=== PATIENT | male | born 1975 | race Caucasian/White ===

== ENCOUNTER → 2017-07-29 | Outpatient (CLI) | payer OTHER ==
[~2017-07-29] MED LIST: DIPH25CA79 PO; OMEP20TA7 PO; PSEU1TAB PO
[2017-07-29 08:42] LABS: BILIRUBIN,URINE NEGATIVE (NEGATIVE); CLARITY,URINE CLEAR; COLOR,URINE YELLOW; GLUCOSE, URINE (UA) NEGATIVE (NEGATIVE); KETONES,URINE 3+ (NEGATIVE); LEUKOCYTE ESTERASE ,URINE NEGATIVE (NEGATIVE); NITRITE,URINE NEGATIVE (NEGATIVE); PH,URINE 6.5 (5-9); PROTEIN,URINE NEGATIVE (NEGATIVE); UROBILINOGEN,URINE NORMAL (NORMAL)
[2017-07-29 08:43] LABS: BASOPHILS % (AUTO) 0 % (0-10); EOSINOPHILS % (AUTO) 0 % (0-10); HEMATOCRIT 44 % (40-54); HEMOGLOBIN 15.2 G/DL (13.3-17.7); LYMPHOCYTES # (AUTO) 1.2 X 10^3 (1.0-4.0); LYMPHOCYTES % (AUTO) 21 % (12-44); MEAN CORPUSCULAR HEMOGLOBIN 30 PG (25-34); MEAN CORPUSCULAR HGB CONC 35 G/DL (32-36); MEAN CORPUSCULAR VOLUME 86 FL (80-99); MEAN PLATELET VOLUME 9.5 FL (7.4-10.4); MONOCYTES # (AUTO) 0.4 X 10^3 (0.0-1.0); MONOCYTES % (AUTO) 7 % (0-12); NEUTROPHILS % (AUTO) 71 % (42-75); PLATELET COUNT 246 10^3/uL (130-400); RED BLOOD COUNT 5.06 10^6/uL (4.35-5.85); RED CELL DISTRIBUTION WIDTH 12.4 % (10.0-14.5); WHITE BLOOD COUNT 5.6 10^3/uL (4.3-11.0)
[2017-07-29 08:59] LABS: BACTERIA,URINE NEGATIVE /HPF; RBC,URINE RARE /HPF
[2017-07-29 09:01] LABS: ALANINE AMINOTRANSFERASE 17 U/L (0-55); ALBUMIN 4.7 GM/DL (3.2-4.5); ALKALINE PHOSPHATASE 93 U/L (40-136); AMYLASE 64 U/L (25-125); BILIRUBIN,TOTAL 1.1 MG/DL (0.1-1.0); BUN/CREATININE RATIO 15; CALCIUM 9.8 MG/DL (8.5-10.1); CARBON DIOXIDE 23 MMOL/L (21-32); CHLORIDE 106 MMOL/L (98-107); CREATININE SERUM 0.85 MG/DL (0.60-1.30); GFR ESTIMATED > 60; GLUCOSE 112 MG/DL (70-105); LIPASE 13 U/L (8-78); SODIUM 138 MMOL/L (135-145); TOTAL PROTEIN 7.3 GM/DL (6.4-8.2)
[2017-07-29 09:03] LABS: ERYTHROCYTE SEDIMENTATION RATE 2 MM/HR (0-15)
--- NOTE | 2017-07-29 09:24 | Diagnostic Imaging Report ---
CLINICAL INDICATION: Patient with abdominal pain. COMPARISON: None. FINDINGS: LIVER: The visualized portions of the liver is normal in shape and echogenicity without focal lesions. The liver measures roughly 15 cm in craniocaudal dimension. The visualized portal veins demonstrates hepatopetal flow. GALLBLADDER: The gallbladder is normal in size, shape and wall thickness without stones, sludge, or masses. BILE DUCTS: There is no evidence of intra- or extra-hepatic biliary dilatation. The common duct measured a maximum of 3.7 mm in diameter. PANCREAS: Portions of the pancreatic tail are obscured by overlying bowel gas. Otherwise, the remaining visualized portions of the pancreas has normal size, shape, and echogenicity without focal lesions. SPLEEN: The spleen has normal echogenicity and configuration. The spleen measures 9.3 cm. ABDOMINAL VASCULATURE: Visualized portions of the abdominal aorta and proximal bilateral common iliac arteries demonstrate smooth contours and are normal in caliber. There is no aneurysmal dilation seen. Visualized portion of the IVC is unremarkable. KIDNEYS: Both kidneys are normal in size, shape, echogenicity and cortical thickness without hydronephrosis, stones, or focal lesions with right and left kidneys measuring 9.6 cm and 11.0 cm in their craniocaudal dimensions, respectively. There is no abdominal ascites. IMPRESSION: 1: Incomplete visualization of the pancreas tail which is obscured by bowel gas. If there is clinical concern for pancreatic abnormality, serology tests may better evaluate. 2: Otherwise, unremarkable abdominal ultrasound with no evidence of acute process. Dictated by: Dictated on workstation # [id number]
== END ==
LOC: RAD 07:51
PROVIDERS: ATTEND Internal Medicine
DX: R10.9 Unspecified abdominal pain (principal)
CPT/HCPCS: 36415; 76700; 80053; 81000; 82150; 83690; 85025; 85652; 86141

== ENCOUNTER 2017-08-02 10:28 | Day surgery (SDC) | payer OTHER ==
[~2017-08-02] VITALS: Ht 175.3 cm; Wt 73.9 kg
--- OUTSIDE RECORDS SUMMARY | 2017-08-02 10:32 | XMS REPORT | Clinical Summary ---
Author Author [facility] Organization [facility] Address Unknown Phone Unavailable Care Team Providers Care Sow Farm Manager Name Role Phone Shawn Hogan PCP Eleuterio Romero MD Unavailable Source Comments Some departments are not documenting in the electronic medical record. If you do not see the information that you expected, contact Release of Information in the Health Information Management department at [phone] for further assistance in locating additional records.[facility] Allergies No Known Allergies Current Medications Prescription Sig. Disp. Refills Start End Date Status Date morphine SR (MS CONTIN) Take 2 Tabs by mouth 60 0 /20/20 Active 15 mg tablet Twice Daily. 08 senna/docusate Take 1 Tab by mouth Every 60 0 07/20/20 Active (SENOKOT-S) 8.6/50 mg 12 Hours as needed for 08 tablet constipation oxycodone/acetaminophen Take 1-2 Tabs by mouth 120 0 /20/20 Active (PERCOCET) 5/325 mg Every 4 Hours as needed 08 tablet for Pain. promethazine (PHENERGAN) Take 1 Tab by mouth Every 50 0 /20/20 Active 25 mg tablet 6 Hours as needed for 08 Nausea. Active Problems Problem Noted Date Fracture calcaneus-closed 10/14/2007 Social History Tobacco Use Types Packs/Day Years Used Date Never Smoker Alcohol Use Drinks/Week oz/Week Comments Yes 12 Cans of 144.0 beer Sex Assigned at Date Recorded Not on file Last Filed Vital Signs Vital Sign Reading Time Taken Blood Pressure 125/75 10/15/2007 7:00 AM CDT Pulse 72 10/15/2007 7:00 AM CDT Temperature 36.7 C (98 F) 10/15/2007 7:00 AM CDT Respiratory Rate - - Oxygen Saturation 95% 10/15/2007 7:00 AM CDT Inhaled Oxygen - - Concentration Weight - - Height - - Body Mass Index - - Plan of Treatment Health Maintenance Due Date Last Done Comments PHYSICAL (COMPREHENSIVE) 1981 EXAM PERTUSSIS VACCINE 1985 HIV SCREENING 1989 TETANUS VACCINE 1991 INFLUENZA VACCINE 12/26/2017 Results Not on filefrom Last 3 Months
--- OUTSIDE RECORDS SUMMARY | 2017-08-02 10:33 | XMS REPORT | Clinical Summary ---
Author Author User, [employer] Organization Daksha Snyder DO, FACP Address Unknown Phone Allergies, Adverse Reactions, Alerts Allergy Name Reaction Description Start Date Severity Status Provider No Known Allergies Daksha Snyder Conditions or Problems Problem Name Problem Code Onset Date Status Entry Date Provider Comment Standard Description Annotate SACROILIITIS, NOT ELSEWHERE CLASSIFIED 720.2 Active Daksha Snyder Sacroiliitis, not elsewhere classified OTHER PSORIASIS 696.1 Active Daksha Snyder Other psoriasis BACK PAIN 724.5 Active Daksha Snyder Backache, unspecified MUSCLE PAIN 729.1 Active Daksha Snyder Myalgia and myositis, unspecified Medication List Medication Instructions Start Date Stop Date Generic Name NDC Status Provider Patient Instruction BETAMETHASONE DIPROPIONATE 0.05 % OINT apply to affected areas prn BETAMETHASONE DIPROPIONATE 23113692938 Active Daksha Snyder Vital Signs Date Name Value Unit Range Description blood pressure, diastolic - 8462-4 85 mm[Hg] BP carlos blood pressure, systolic - 8480-6 120 mm[Hg] BP sys height E&M - 8302-2 69 [in_us] Bdy height pulse rate E&M - 8867-4 82 /min Heart rate respiratory rate E&M - 9279-1 14 /min Resp rate temperature E&M 98.6 [degF] Body temperature weight E&M - 3141-9 170 [lb_av] Weight Measured Diagnostic Results Date Name Value Unit Range Description Clinical Lists Update: CBC,CMP,ESR,TSH,FREE T4,HGA1C,UA - Chemistry Estimated Glomerular Filtration Rate (calc) >60 mL/min/1.73m2 alkaline phosphatase, serum 80 U/L sodium, serum 138 mmol/L bilirubin, serum, total 0.5 mg/dL alanine aminotransferase (SGPT), serum 24 U/L aspartate aminotransferase (SGOT), serum 17 U/L protein, total, serum 7.0 g/dL potassium, serum 3.8 mmol/L thyroid stimulating hormone, serum 2.68 u[iU]/mL hemoglobin A1C, blood, as % of total hemoglobin 5.8 % thyroxine, serum, free 0.88 ng/dL albumin, serum 4.4 g/dL creatinine, serum 0.91 mg/dL carbon dioxide, venous blood 23 mmol/L chloride, serum 106 mmol/L calcium, serum 9.3 mg/dL urea nitrogen, blood 16 mg/dL glucose, plasma fasting 98 mg/dL Clinical Lists Update: CBC,CMP,ESR,TSH,FREE T4,HGA1C,UA - Hematology leukocyte count, blood 6.7 10*3/mm3 erythrocyte sedimentation rate 6 mm/h hematocrit, blood 42 % hemoglobin, blood 14.7 g/dL platelet count 215 10*3/mm3 erythrocyte (RBC) count 4.89 10*6/mm3 mean corpuscular volume, RBC 86 fL red blood cell distribution width 12.4 % Clinical Lists Update: CBC,CMP,ESR,TSH,FREE T4,HGA1C,UA - Urinalysis glucose, urine, semiquantitative neg blood in urine (hemoglobin) by dipstick neg mucus on urinalysis neg epithelial cells, urine rare /[LPF] hyaline casts, urine none /[LPF] bacteria, urine microscopy neg RBC urine by microscopy none WBC urine on microscopy none {Cells}/[HPF] appearance, urine Clear Yellow bilirubin, urine neg ketones, urine, by test strip neg nitrite, urine, semiquantitative neg pH, urine, semiquantitative 6 protein, urine, semiquantitative (dipstick) neg specific gravity, urine 1.010 urobilinogen, urine, semiquantitative (dipstick) normal Clinical Lists Update: FERRITIN - Chemistry ferritin, serum 97 ng/mL Encounters Code Encounter Date Provider Facility CPT-90596 Ofc Vst, New Level III 17:08:21 CDT Daksha [facility]
--- OUTSIDE RECORDS SUMMARY | 2017-08-02 10:33 | XMS REPORT | Clinical Summary ---
Author Author User, [employer] Organization Daksha Snyder DO, FACP Address Unknown [...] Active Daksha Snyder Myalgia and myositis, unspecified HEALTH SCREENING V70.0 Active Daksha Snyder Routine general medical examination at a health care facility Medication List Medication Instructions Start Date Stop Date Generic Name NDC Status Provider Patient Instruction BETAMETHASONE DIPROPIONATE 0.05 % OINT apply to affected areas prn BETAMETHASONE DIPROPIONATE [id number] Active Daksha Snyder Vital Signs Date Name Value Unit Range Description blood pressure, diastolic - 8462-4 83 mm[Hg] BP carlos blood pressure, systolic - 8480-6 132 mm[Hg] BP sys pulse rate E&M - 8867-4 68 /min Heart rate respiratory rate E&M - 9279-1 14 /min Resp rate weight E&M - 3141-9 170 [lb_av] Weight Measured blood pressure, diastolic - 8462-4 85 mm[Hg] [...] ng/mL Encounters Code Encounter Date Provider Facility CPT-94339 Ofc Vst, New Level III 17:08:21 CDT Dak[facility] Procedures Code Procedure Name Date Entry Date Standard Description CPT-47359 Preventive, Est, (40-64) 16:37:57 CDT
--- OUTSIDE RECORDS SUMMARY | 2017-08-02 10:33 | XMS REPORT | Clinical Summary ---
Author Author User, [employer] Organization Daksha Snyder DO, FACP Address Unknown [...] apply to affected areas prn BETAMETHASONE DIPROPIONATE [id number] Active Daksha Snyder Vital Signs Date Name [...] Clinical Lists Update: CBC,CMP,ESR,TSH,FREE T4,HGA1C,UA - Chemistry glucose, plasma fasting 98 mg/dL albumin, serum 4.4 g/dL sodium, serum 138 mmol/L bilirubin, serum, total 0.5 mg/dL alanine aminotransferase (SGPT), serum 24 U/L aspartate aminotransferase (SGOT), serum 17 U/L protein, total, serum 7.0 g/dL potassium, serum 3.8 mmol/L thyroid stimulating hormone, serum 2.68 u[iU]/mL hemoglobin A1C, blood, as % of total hemoglobin 5.8 % thyroxine, serum, free 0.88 ng/dL creatinine, serum 0.91 mg/dL carbon dioxide, venous blood 23 mmol/L chloride, serum 106 mmol/L calcium, serum 9.3 mg/dL urea nitrogen, blood 16 mg/dL alkaline phosphatase, serum 80 U/L Estimated Glomerular Filtration Rate (calc) >60 mL/min/1.73m2 Clinical Lists Update: CBC,CMP,ESR,TSH,FREE T4,HGA1C,UA - Hematology mean corpuscular volume, RBC 86 fL red blood cell distribution width 12.4 % leukocyte count, blood 6.7 10*3/mm3 erythrocyte sedimentation rate 6 mm/h hematocrit, blood 42 % hemoglobin, blood 14.7 g/dL platelet count 215 10*3/mm3 erythrocyte (RBC) count 4.89 10*6/mm3 Clinical Lists Update: CBC,CMP,ESR,TSH,FREE T4,HGA1C,UA - Urinalysis blood in urine (hemoglobin) by dipstick neg protein, urine, semiquantitative (dipstick) neg epithelial cells, urine rare /[LPF] hyaline casts, urine none /[LPF] bacteria, urine microscopy neg RBC urine by microscopy none WBC urine on microscopy none {Cells}/[HPF] appearance, urine Clear Yellow urobilinogen, urine, semiquantitative (dipstick) normal specific gravity, urine 1.010 glucose, urine, semiquantitative neg bilirubin, urine neg ketones, urine, by test strip neg nitrite, urine, semiquantitative neg pH, urine, semiquantitative 6 mucus on urinalysis neg Encounters Code Encounter Date Provider Facility CPT-82970 Ofc Vst, New Level III 17:08:21 CDT Daksha [facility]
--- OUTSIDE RECORDS SUMMARY | 2017-08-02 10:33 | XMS REPORT | Continuity of Care Document ---
Author Author [facility] Organization [facility] Address Unknown Phone Unavailable Allergies There is no data. Medications There is no data. Problems Date Dx Coded Attending Type Code Diagnosis Diagnosed By 10/17/2014 RENTERIA DO, CINDA Ot 285.9 10/17/2014 RENTERIA DO, CINDA Ot 696.1 10/17/2014 RENTERIA DO, CINDA Ot 719.40 10/17/2014 RENTERIA DO, CINDA Ot 720.2 10/17/2014 RENTERIA DO, CINDA Ot 782.1 11/25/2014 Ot 825.0 11/25/2014 Ot E849.0 11/25/2014 Ot E888.9 11/25/2014 RENTERIA DO, CINDA Ot 285.9 11/25/2014 RENTERIA DO, CINDA Ot 696.1 11/25/2014 RENTERIA DO, CINDA Ot 719.40 11/25/2014 RENTERIA DO, CINDA Ot 720.2 11/25/2014 RENTERIA DO, CINDA Ot 782.1 11/25/2014 RENTERIA DO, CINDA Ot 285.9 11/25/2014 RENTERIA DO, CINDA Ot 696.1 11/25/2014 RENTERIA DO, CINDA Ot 719.40 11/25/2014 RENTERIA DO, CINDA Ot 720.2 11/25/2014 RENTERIA DO, CINDA Ot 782.1 07/28/2017 RENTERIA DO, CINDA Ot 285.9 ANEMIA NOS 07/28/2017 RENTERIA DO, CINDA Ot 696.1 OTHER PSORIASIS 07/28/2017 RENTERIA DO, CINDA Ot 719.40 JOINT PAIN-UNSPEC 07/28/2017 RENTERIA DO, CINDA Ot 720.2 SACROILIITIS NEC 07/28/2017 RENTERIA DO, CINDA Ot 782.1 NONSPECIF SKIN ERUPT NEC Procedures There is no data. Results Test Result Range Complete blood count (CBC) with automated white blood cell (WBC) differential - 07/29/17 08:27 Blood leukocytes automated count (number/volume) 5.6 10*3/uL 4.3-11.0 Blood erythrocytes automated count (number/volume) 5.06 10*6/uL 4.35-5.85 Venous blood hemoglobin measurement (mass/volume) 15.2 g/dL 13.3-17.7 Blood hematocrit (volume fraction) 44 % 40-54 Automated erythrocyte mean corpuscular volume 86 [foz_us] 80-99 Automated erythrocyte mean corpuscular hemoglobin (mass per erythrocyte) 30 pg 25-34 Automated erythrocyte mean corpuscular hemoglobin concentration measurement ( mass/volume) 35 g/dL 32-36 Automated erythrocyte distribution width ratio 12.4 % 10.0-14.5 Automated blood platelet count (count/volume) 246 10*3/uL 130-400 Automated blood platelet mean volume measurement 9.5 [foz_us] 7.4-10.4 Automated blood neutrophils/100 leukocytes 71 % 42-75 Automated blood lymphocytes/100 leukocytes 21 % 12-44 Blood monocytes/100 leukocytes 7 % 0-12 Automated blood eosinophils/100 leukocytes 0 % 0-10 Automated blood basophils/100 leukocytes 0 % 0-10 Blood neutrophils automated count (number/volume) 4.0 10*3 1.8-7.8 Blood lymphocytes automated count (number/volume) 1.2 10*3 1.0-4.0 Blood monocytes automated count (number/volume) 0.4 10*3 0.0-1.0 Automated eosinophil count 0.0 10*3/uL 0.0-0.3 Automated blood basophil count (count/volume) 0.0 10*3/uL 0.0-0.1 Comprehensive metabolic panel - 07/29/17 08:27 Serum or plasma sodium measurement (moles/volume) 138 mmol/L 135-145 Serum or plasma potassium measurement (moles/volume) 4.0 mmol/L 3.6-5.0 Serum or plasma chloride measurement (moles/volume) 106 mmol/L 98-107 Carbon dioxide 23 mmol/L 21-32 Serum or plasma anion gap determination (moles/volume) 9 mmol/L 5-14 Serum or plasma urea nitrogen measurement (mass/volume) 13 mg/dL 7-18 Serum or plasma creatinine measurement (mass/volume) 0.85 mg/dL 0.60-1.30 Serum or plasma urea nitrogen/creatinine mass ratio 15 NRG Serum or plasma creatinine measurement with calculation of estimated glomerular filtration rate > NRG Serum or plasma glucose measurement (mass/volume) 112 mg/dL 70-105 Serum or plasma calcium measurement (mass/volume) 9.8 mg/dL 8.5-10.1 Serum or plasma total bilirubin measurement (mass/volume) 1.1 mg/dL 0.1-1.0 Serum or plasma alkaline phosphatase measurement (enzymatic activity/volume) 93 U/L 40-136 Serum or plasma aspartate aminotransferase measurement (enzymatic activity/ volume) 15 U/L 5-34 Serum or plasma alanine aminotransferase measurement (enzymatic activity/volume ) 17 U/L 0-55 Serum or plasma protein measurement (mass/volume) 7.3 g/dL 6.4-8.2 Serum or plasma albumin measurement (mass/volume) 4.7 g/dL 3.2-4.5 Serum or plasma amylase measurement (enzymatic activity/volume) - 07/29/17 08: 27 Serum or plasma amylase measurement (enzymatic activity/volume) 64 U /L 25-125 Lipase - 07/29/17 08:27 Lipase 13 U/L 8-78 Erythrocyte sedimentation rate by westergren method - 07/29/17 08:27 Erythrocyte sedimentation rate by westergren method 2 mm 0-15 Serum or plasma C reactive protein measurement (mass/volume) - 07/29/17 08:27 Serum or plasma C reactive protein measurement (mass/volume) 0.03 mg /dL 0.00-0.50 Complete urinalysis with reflex to culture - 07/29/17 08:30 Urine color determination YELLOW NRG Urine clarity determination CLEAR NRG Urine pH measurement by test strip 6.5 5-9 Specific gravity of urine by test strip 1.010 1.016- 1.022 Urine protein assay by test strip, semi-quantitative NEGATIVE NEGATIVE Urine glucose detection by automated test strip NEGATIVE NEGATIVE Erythrocytes detection in urine sediment by light microscopy 1+ NEGATIVE Urine ketones detection by automated test strip 3+ NEGATIVE Urine nitrite detection by test strip NEGATIVE NEGATIVE Urine total bilirubin detection by test strip NEGATIVE NEGATIVE Urine urobilinogen measurement by automated test strip (mass/volume) NORMAL NORMAL Urine leukocyte esterase detection by dipstick NEGATIVE NEGATIVE Automated urine sediment erythrocyte count by microscopy (number/high power field) RARE NRG Automated urine sediment leukocyte count by microscopy (number/high power field ) NONE NRG Bacteria detection in urine sediment by light microscopy NEGATIVE NRG Squamous epithelial cells detection in urine sediment by light microscopy NONE NRG Crystals detection in urine sediment by light microscopy NONE NRG Casts detection in urine sediment by light microscopy NONE NRG Mucus detection in urine sediment by light microscopy NEGATIVE NRG Complete urinalysis with reflex to culture NO NRG Encounters ACCT No. Visit Date/Time Discharge Status Pt. Type Provider Facility Loc./Unit Complaint [id number] 07/29/2017 07:51:00 07/29/2017 23:59:59 [facility] Outpatient CINDA RENTERIA DO [facility] RAD R10.9 ABD PAIN [id number] 09/18/2014 16:37:00 09/18/2014 23:59:59 [facility] Outpatient CINDA RENTERIA DO [facility] RAD SACRUM PAIN,BACK PAIN,SI JOINT PAIN,ANEMIA,PSORIAS [id number] 10/05/2007 10:49:00 Document Registration [email or web address] 09/18/2014 16:40:13 [facility] Document Registration
--- OUTSIDE RECORDS SUMMARY | 2017-08-02 10:33 | XMS REPORT | Clinical Summary ---
Author Author User, [employer] Organization Daksha Snyder DO, FACP Address Unknown [...] medical examination at a health care facility ABDOMINAL PAIN, GENERALIZED 789.07 Active Daksha Snyder Abdominal pain, generalized GERD 530.81 Active Daksha Snyder Esophageal reflux Medication List Medication Instructions Start Date Stop Date Generic Name NDC Status Provider Patient Instruction CARAFATE 1 GM TABS 1 PO 30 minutes before meals and at bedtime SUCRALFATE 58368515575 Active Daksha Snyder BETAMETHASONE DIPROPIONATE 0.05 % OINT apply to affected areas prn BETAMETHASONE DIPROPIONATE 13111542236 Active Daksha Snyder Vital Signs Date Name Value Unit Range Description blood pressure, diastolic - 8462-4 88 mm[Hg] BP carlos blood pressure, systolic - 8480-6 154 mm[Hg] BP sys pulse rate E&M - 8867-4 80 /min Heart rate respiratory rate E&M - 9279-1 14 /min Resp rate temperature E&M 98.6 [degF] Body temperature weight E&M - 3141-9 165 [lb_av] Weight Measured blood pressure, diastolic - 8462-4 83 mm[Hg] [...] Clinical Lists Update: CBC,CMP,ESR,TSH,FREE T4,HGA1C,UA - Chemistry albumin, serum 4.4 g/dL alkaline phosphatase, serum 80 U/L glucose, plasma fasting 98 mg/dL sodium, serum 138 mmol/L bilirubin, serum, total [...] 9.3 mg/dL urea nitrogen, blood 16 mg/dL Estimated Glomerular Filtration Rate (calc) >60 mL/min/1.73m2 [...] ng/mL Encounters Code Encounter Date Provider Facility CPT-51841 Ofc Vst, Est Level IV 19:17:20 CDT Daksha Snyder DO, FACP CPT-33421 Ofc Vst, New Level III 17:08:21 CDT Daksha [facility] Procedures Code Procedure Name Date Entry Date Standard Description CPT-79717 Preventive, Est, (40-64) 16:37:57 CDT
[2017-08-02 10:45] VITALS: BP 117/83
[2017-08-02] MEDS ORDERED: LACTATED RINGERS 1,000 ML IV PRN (10:45)
[2017-08-02] MEDS ORDERED: LACTATED RINGERS 1,000 ML IV ONE (10:52)
[2017-08-02] MEDS ORDERED: MIDAZOLAM 2 MG/2 ML (VERSED) VIAL ONE (11:09)
[2017-08-02] MEDS ORDERED: proPOfol 200 MG/20 ML (DIPRIVAN) VIAL IV ONE ×2 (11:09→11:29)
[2017-08-02] MEDS ORDERED: HURRICAINE EXT TUBE (BENZOCAINE) ONE (11:14)
--- NOTE | 2017-08-02 11:16 | Progress Note-Pre Operative ---
Pre-Operative Progress Note H&P Reviewed The H&P was reviewed, patient examined and no changes noted. Time Seen by Provider: 11:11 Date H&P Reviewed: August 02, 2017 Time H&P Reviewed: 11:13 Pre-Operative Diagnosis: Gastritis, Abdominal Fullnes, Abdominal pain HOA MARTINEZ DO August 02, 2017 11:16
[2017-08-02] MEDS ORDERED: PSEU1TAB PO (11:23)
[2017-08-02] MEDS ORDERED: OMEP20TA7 PO (11:23)
[2017-08-02] MEDS ORDERED: DIPH25CA79 PO (11:23)
--- NOTE | 2017-08-02 11:41 | Progress Note-Post Operative ---
Post-Operative Progess Note Surgeon (s)/Cotton Tipper (s) Surgeon HOA MARTINEZ DO Cotton Tipper: none Pre-Operative Diagnosis Gastritis, Abdominal Fullnes, Abdominal pain Post-Operative Diagnosis Gastritis ?? Yoon's Esophagus Esophageal polyp Procedure & Operative Findings Date of Procedure 08/02/17 Procedure Performed/Findings EGD with biopsy Anesthesia Type IV sedation by HEADER SET UP OPERATOR Estimated Blood Loss Estimated blood loss (mL): scant Specimens/Packing Specimens Removed Antral bx GE jxn bx Esophageal bx HOA MARTINEZ DO August 02, 2017 11:41
--- NOTE | 2017-08-02 11:43 | Endoscopy Discharge Instruct ---
Endo Procedure/Findings Findings 1.: Gastritis 2.: Yoon's Esophagus 3.: Other Findings (??Esophageal polyp) Discharge Instructions - Activity: You might feel a little sleepy until tomorrow. This is due to the medicine you received to relax you. Until tomorrow, you should: NOT drive a car, operate machinery or power tools. NOT drink any alcoholic beverages. NOT make any important decisions or sign importortant papers. Do not return to work until tomorrow, unless otherwise instructed. Resume previous activities tomorrow. Diet: Start by taking liquids. If you tolerate liquids, advance to solid food. Make appointment for one week. Instructions: 1.: EGD in 6-8 weeks Notify Physician - If you experience excessive bleeding, unusual abdominal pain, fever, or chest pain, contact your doctor immediately. Follow-Up: - I have received and understand the above instructions and will call my doctor if I have any further questions. Patient Signature Date Nurse Signature Other (Relationship) HOA MARTINEZ DO August 02, 2017 11:43
[2017-08-02] MEDS ORDERED: HURRICAINE EXT TUBE (BENZOCAINE) XX ONE (11:45)
[2017-08-02 12:00] VITALS: BP 112/72
[2017-08-02 12:35] VITALS: BP 114/77
[2017-08-02 12:45] VITALS: BP 114/77
--- NOTE | 2017-08-03 19:52 | OPERATIVE REPORT ---
DATE OF SERVICE: 08/02/2017 PREOPERATIVE DIAGNOSES: Gastritis, abdominal fullness. POSTOPERATIVE DIAGNOSES: 1. Gastritis. 2. Questionable Yoon's esophagus. 3. Questionable esophageal polyp. PROCEDURE: EGD with biopsy. SURGEON: Haja Cifuentes DO. STARCHER AND TENTER RANGE FEEDER: None. ANESTHESIA: IV sedation by the PNEUMATIC TUBE OPERATOR. SPECIMEN: One biopsy from the antrum, one biopsy from the GE junction, one biopsy from the upper esophagus. BLOOD LOSS: Scant. FLUIDS: Per anesthesia. POSTOPERATIVE CONDITION: Stable. INDICATION FOR PROCEDURE: The patient is a 42-year-old male who has been having some gastritis symptoms and fullness feel that he gets a full feeling after eating, needed an EGD. FINDINGS: The patient had some gastritis. The antrum looked a little bit red, duodenum looked okay. He had possible some change of the GE junction, picture was taken as well as the possible flat polyp in the upper esophagus. PROCEDURE NOTE: After informed consent was obtained, the patient was brought to the endoscopy suite, placed in the bed in the left lateral decubitus position. He was administered IV sedation by the PNEUMATIC TUBE OPERATOR who then monitored his vitals the entire time, heart rate, blood pressure, and pulse ox and a scope was then inserted, pushed down the mouth through the esophagus and into the stomach. Upon entering, looked at the antrum saw some erythema. Took a picture of this and then pushed into the first portion of duodenum. Duodenum looked good, backed up and into the antrum, took a cold biopsy of antrum and then pulled back to look at the rest of the stomach, retroflexed to see the upper portion, did not see any hiatal hernia and then pulled the scope back into the esophagus. At the GE junction, it did look like there was some creeping up of the Z line. Picture was taken then, a biopsy done at this spot and then pulled up the esophagus a little bit further, saw what might have been a flat polyp, did a biopsy of this flat polyp and then pulled the scope up the esophagus and out the mouth. The patient tolerated the procedure and he was recovered in endoscopy suite. Job ID: [id number] DocumentID: [id number] Dictated Date: 08/03/2017 10:16:14 Sewer And Inspector Date: 08/03/2017 19:52:01 Dictated By: HAJA CIFUENTES DO
== END 2017-08-02 12:45 | disposition home or self-care (01) ==
LOC: ENDO 10:28
PROVIDERS: ATTEND Surgery
DX: K29.70 Gastritis, unspecified, without bleeding (principal)
CPT/HCPCS: 88305

== ENCOUNTER 2017-09-23 11:00 | Outpatient (CLI) | payer OTHER ==
[~2017-09-23] VITALS: Ht 175.3 cm; Wt 73.9 kg
[2017-09-23] MEDS ORDERED: PANT40TA2 PO (11:20)
== END 2017-09-23 11:48 ==
LOC: PREOP 11:00
PROVIDERS: ATTEND Surgery
DX: Z01.818 Encounter for other preprocedural examination (principal)

== ENCOUNTER 2017-09-26 08:30 | Day surgery (SDC) | payer OTHER ==
[~2017-09-26] VITALS: Ht 175.3 cm; Wt 73.9 kg
[~2017-09-26 08:30] MED LIST changes: +PANT40TA2 PO
--- OUTSIDE RECORDS SUMMARY | 2017-09-26 08:33 | XMS REPORT | Clinical Summary ---
Author Author [facility] Organization [facility] Address Unknown Phone Unavailable Care Team Providers Care Social Research Assistant Name Role Phone Shawn Hogan PCP Eleuterio Romero MD Unavailable Source Comments Some departments are not documenting in the electronic medical record. If you do not see the information that you expected, contact Release of Information in the Health Information Management department at [phone] for further assistance in locating additional records.[facility] Allergies No Known Allergies Current Medications Prescription [...]
[2017-09-26] MEDS ORDERED: LACTATED RINGERS 1,000 ML IV STA (08:34)
[2017-09-26] MEDS ORDERED: LACTATED RINGERS 1,000 ML IV ONE (08:39)
[2017-09-26 08:55] VITALS: BP 132/86
[2017-09-26] MEDS ORDERED: PROPOFOL INJECTION 50 ML IV ONE (09:06)
--- NOTE | 2017-09-26 09:06 | Progress Note-Pre Operative ---
Pre-Operative Progress Note H&P Reviewed The H&P was reviewed, patient examined and no changes noted. Time Seen by Provider: 08:58 Date H&P Reviewed: Sep 26, 2017 Time H&P Reviewed: 09:01 Pre-Operative Diagnosis: Change in bowel habit, Abd pain, Strong family hx of colon CA HOA MARTINEZ DO Sep 26, 2017 09:06
[2017-09-26] MEDS ORDERED: MIDAZOLAM 2 MG/2 ML (VERSED) VIAL ONE (09:07)
--- NOTE | 2017-09-26 10:08 | Progress Note-Post Operative ---
Post-Operative Progess Note Surgeon (s)/Bag Maker (s) Surgeon HOA MARTINEZ DO Bag Maker: none Pre-Operative Diagnosis Change in bowel habit, Abd pain, Strong family hx of colon CA Post-Operative Diagnosis Same plus Ileocecal valve inflammation Int Hem Procedure & Operative Findings Date of Procedure 09/26/17 Procedure Performed/Findings Colon with bx Anesthesia Type Iv sedation by STEAM BONE PRESS TENDER Estimated Blood Loss Estimated blood loss (mL): scant Specimens/Packing Specimens Removed biopsy of IC valve HOA MARTINEZ DO Sep 26, 2017 10:08
--- NOTE | 2017-09-26 10:09 | Endoscopy Discharge Instruct ---
Endo Procedure/Findings Findings 1.: Other Findings (inflammation of Ileo-cecal valve) 2.: Internal Hemorrhoids Discharge Instructions - Activity: You might feel a little sleepy until tomorrow. This is due to the medicine you received to relax you. Until tomorrow, you should: NOT drive a car, operate machinery or power tools. NOT drink any alcoholic beverages. NOT make any important decisions or sign importortant papers. Do not return to work until tomorrow, unless otherwise instructed. Resume previous activities tomorrow. Diet: Start by taking liquids. If you tolerate liquids, advance to solid food. Make appointment for one week. Notify Physician - If you experience excessive bleeding, unusual abdominal pain, fever, or chest pain, contact your doctor immediately. Follow-Up: - I have received and understand the above instructions and will call my doctor if I have any further questions. Patient Signature Date Nurse Signature Other (Relationship) HOA MARTINEZ DO Sep 26, 2017 10:09
[2017-09-26 10:30] VITALS: BP 114/75
[2017-09-26 11:00] VITALS: BP 112/80
[2017-09-26 11:05] VITALS: BP 112/80
--- NOTE | 2017-09-26 14:56 | Anesthesia-General Post-Op ---
MAC Patient Condition Mental Status/LOC: Same as Preop Cardiovascular: Satisfactory Nausea/Vomiting: Absent Respiratory: Satisfactory Pain: Controlled Complications: Absent Post Op Complications Complications None Follow Up Care/Instructions Patient Instructions None needed. Anesthesiology Discharge Order Discharge Order Patient is doing well, no complaints, stable vital signs, no apparent adverse anesthesia problems. No complications reported per nursing. GINA KIRK CRNA Sep 26, 2017 14:56
--- NOTE | 2017-09-26 16:12 | OPERATIVE REPORT ---
DATE OF SERVICE: PREOPERATIVE DIAGNOSES: 1. Change in bowel habits. 2. Abdominal pain. 3. Strong family history of colon cancer. POSTOPERATIVE DIAGNOSES: 1. Change in bowel habits. 2. Abdominal pain. 3. Strong family history of colon cancer. 4. Ileocecal valve inflammation. 5. Internal hemorrhoids. PROCEDURE: Colonoscopy with cold biopsy. SURGEON: Haja Cifuentes DO. SYNTHETIC STAPLE EXTRUDER: None. ANESTHESIA: IV sedation by the PHYSICAL SECURITY ENGINEER. SPECIMEN: Biopsy from the ileocecal valve. BLOOD LOSS: Scant. FLUIDS: Per anesthesia. POSTOPERATIVE CONDITION: Stable. INDICATION FOR PROCEDURE: The patient is a 42-year-old male who has been having some change in bowel habits, abdominal pain and has had a strong family history of colon cancer. FINDINGS: The patient had some ileocecal valve inflammation. The terminal ileum looked fine and he had some grade I almost 2 internal hemorrhoids. DESCRIPTION OF PROCEDURE: After informed consent was obtained, the patient was brought to the endoscopy suite and placed in the left lateral decubitus position. He was administered IV sedation by the PHYSICAL SECURITY ENGINEER who then monitored his vitals the entire time, heart rate, blood pressure and pulse ox, and the scope was inserted, pushed all the way about 150 cm, able to get to the cecum, took a picture of appendiceal orifice and noted the ileocecal valve, which looked like it was very inflamed. There is some red and almost ulcerations on it. Pushed into the terminal ileum, took a picture of the terminal ileum. This looked normal. Did not see any ulcerations in here. Backed up and then did a biopsy of the ileocecal valve and then slowly withdrew the scope, insufflating to look circumferentially at the padilla looking at the cecum up the ascending colon to the hepatic flexure, then down the transverse colon to the splenic flexure into the descending colon and down into the sigmoid and rectum, retroflexion in rectal vault, saw some grade I to II internal hemorrhoids, took a picture of this and then removed the scope. The patient tolerated the procedure well and he was recovered in the endoscopy suite. Job ID: [id number] DocumentID: [id number] Dictated Date: 09/26/2017 10:17:10 Fermentation Engineer Date: 09/26/2017 16:11:35 Dictated By: HAJA CIFUENTES DO
== END 2017-09-26 11:05 | disposition home or self-care (01) ==
LOC: ENDO 08:30
PROVIDERS: ATTEND Surgery
DX: K52.9 Noninfective gastroenteritis and colitis, unspecified (principal); K64.8 Other hemorrhoids; R19.5 Other fecal abnormalities; K21.9 Gastro-esophageal reflux disease without esophagitis; Z80.0 Family history of malignant neoplasm of digestive organs
CPT/HCPCS: 88305

== ENCOUNTER 2017-09-30 05:24 | Outpatient (CLI) | payer OTHER ==
[~2017-09-30] VITALS: Ht 175.3 cm; Wt 73.9 kg
[2017-10-05] MEDS ORDERED: ACHD5005 PO (10:31)
== END 2017-09-30 13:19 ==
LOC: PREOP 05:24
PROVIDERS: ATTEND Surgery
DX: Z01.818 Encounter for other preprocedural examination (principal); K82.8 Other specified diseases of gallbladder

== ENCOUNTER 2017-10-05 08:16 | Day surgery (SDC) | payer OTHER ==
[~2017-10-05] VITALS: Ht 175.3 cm; Wt 73.9 kg
--- OUTSIDE RECORDS SUMMARY | 2017-10-05 08:19 | XMS REPORT | Clinical Summary ---
Author Author [facility] Organization [facility] Address Unknown Phone Unavailable Care Team Providers Care Rum Processing Operator Name Role Phone Shawn Hogan PCP Eleuterio Romero MD Unavailable Source Comments Some departments are not documenting in the electronic medical record. If you do not see the information that you expected, contact Release of Information in the Health Information Management department at [phone] for further assistance in locating additional records.[facility] Allergies No Known Allergies Current Medications [...]
--- OUTSIDE RECORDS SUMMARY | 2017-10-05 08:19 | XMS REPORT | Continuity of Care Document ---
Author Author [facility] Organization [facility] Address Unknown Phone Unavailable Allergies Active Description Code Type Severity Reaction Onset Reported/Identified Relationship to Patient Clinical Status Yes No Known Drug Allergies [id number] Drug Allergy Unknown N/A 09/30/2017 Medications There is no data. Problems Date [...] CINDA Ot 782.1 NONSPECIF SKIN ERUPT NEC 08/01/2017 MYRA DO, CINDA Ot R10.9 UNSPECIFIED ABDOMINAL PAIN 08/02/2017 MYRA PRADO, CINDA Ot R10.9 UNSPECIFIED ABDOMINAL PAIN 08/02/2017 JUAN DO, HOA B Ot K29.70 GASTRITIS, UNSPECIFIED, WITHOUT BLEEDING 08/04/2017 JUAN DO, HOA B Ot K29.70 GASTRITIS, UNSPECIFIED, WITHOUT BLEEDING 08/09/2017 MYRA PRADO, CINDA Ot R10.9 UNSPECIFIED ABDOMINAL PAIN 09/12/2017 MYRA PRADO, CINDA Ot R10.9 UNSPECIFIED ABDOMINAL PAIN 09/25/2017 JUAN DO, HOA B Ot K82.8 OTHER SPECIFIED DISEASES OF GALLBLADDER 09/26/2017 MYRA PRADO, CINDA Ot R10.9 UNSPECIFIED ABDOMINAL PAIN 09/26/2017 JUAN DO, HOA B Ot K82.8 OTHER SPECIFIED DISEASES OF GALLBLADDER 09/26/2017 JUAN DO, HOA B Ot Z01.818 ENCOUNTER FOR OTHER PREPROCEDURAL EXAMIN 10/03/2017 JUAN DO, HOA B Ot K82.8 OTHER SPECIFIED DISEASES OF GALLBLADDER 10/03/2017 JUAN DO, HOA B Ot Z01.818 ENCOUNTER FOR OTHER PREPROCEDURAL EXAMIN Procedures There is no data. Results Test [...] Status Pt. Type Provider Facility Loc./Unit Complaint [id number] 09/30/2017 05:24:00 09/30/2017 13:19:00 DIS Outpatient HOA MARTINEZ DO [facility] PREOP CHOLELITHIASIS [id number] 09/26/2017 08:30:00 09/26/2017 11:05:00 DIS Outpatient HOA MARTINEZ DO [facility] ENDO FAMILY HX COLON CA [id number] 09/23/2017 11:00:00 09/23/2017 11:48:00 DIS Outpatient HOA MARTINEZ DO [facility] PREOP COLONOSCOPY [id number] 09/19/2017 11:56:00 09/19/2017 23:59:59 CLS Outpatient HOA MARTINEZ DO [facility] CARD ABD PAIN [id number] 08/02/2017 10:28:00 08/02/2017 12:45:00 DIS Outpatient HOA MARTINEZ DO [facility] ENDO WT LOSS, ABD PAIN [id number] 07/29/2017 07:51:00 07/29/2017 23:59:59 CLS Outpatient MYRA PRADO CINDA [facility] RAD R10.9 ABD PAIN [id number] 09/18/2014 16:37:00 09/18/2014 23:59:59 CLS Outpatient RENTERIA DO, CINDA [facility] RAD SACRUM PAIN,BACK PAIN,SI JOINT PAIN,ANEMIA,PSORIAS [id number] 10/05/2017 09:45:00 PEN Preadmit HOA MARTINEZ DO [facility] CHOLELITHIASIS [id number] 10/05/2007 10:49:00 Document Registration [email or web address] 09/18/2014 16:40:13 ACT Document Registration
[2017-10-05 08:20] VITALS: BP 139/81
[2017-10-05] MEDS ORDERED: ceFAZolin 2 GM IV Premixed 50 ML IV ONE (08:30)
[2017-10-05] MEDS ORDERED: LIDOCAINE/EPI 1%-1:200,000 (XYLOCAINE) 10 ML VIAL ONE (09:00)
[2017-10-05] MEDS ORDERED: DEXAMETHASONE 10 MG/ML (DECADRON) 1 ML VIAL ONE (09:03)
[2017-10-05] MEDS ORDERED: proPOfol 200 MG/20 ML (DIPRIVAN) VIAL IV ONE (09:03)
[2017-10-05] MEDS ORDERED: ONDANSETRON 4 MG/2 ML (SDV) Z0FRAN ONE ×2 (09:03→09:18)
[2017-10-05] MEDS ORDERED: ROCURONIUM 10 MG/ML 5 ML SYRINGE IV ONE (09:03)
[2017-10-05] MEDS ORDERED: LIDOCAINE PF 2% 5 ML (XYLOCAINE) VIAL ONE (09:03)
[2017-10-05] MEDS ORDERED: fentaNYL INJECTION 100 MCG/2 ML AMP ONE ×2 (09:04→10:34)
[2017-10-05] MEDS ORDERED: MIDAZOLAM 2 MG/2 ML (VERSED) VIAL ONE (09:04)
[2017-10-05] MEDS ORDERED: SCOPOLAMINE 1.5 MG (TRANSDERM-SCOP) PATCH TOP ONE ×2 (09:15→09:30)
[2017-10-05] MEDS ORDERED: FAMOTIDINE 20MG/2ML IV (PEPCID) IV ONE (09:15)
[2017-10-05] MEDS: LACTATED RINGERS 1,000 ML IV PRN ×4 (09:15→11:26)
[2017-10-05] MEDS ORDERED: SEVOFLURANE (ULTANE) 15 ML INHAL SOLN ONE ×6 (09:15→10:40)
[2017-10-05] MEDS ORDERED: ONDANSETRON 4 MG/2 ML (SDV) Z0FRAN IV ONE (09:15)
[2017-10-05] MEDS ORDERED: FAMOTIDINE 20MG/2ML IV (PEPCID) ONE (09:18)
[2017-10-05] MEDS ORDERED: SCOPOLAMINE 1.5 MG (TRANSDERM-SCOP) PATCH ONE (09:19)
--- NOTE | 2017-10-05 10:29 | Progress Note-Pre Operative ---
Pre-Operative Progress Note H&P Reviewed The H&P was reviewed, patient examined and no changes noted. Time Seen by Provider: 09:16 Date H&P Reviewed: Oct 05, 2017 Time H&P Reviewed: 09:18 Pre-Operative Diagnosis: Biliary Dyskinesia HOA MARTINEZ DO Oct 05, 2017 10:29
--- NOTE | 2017-10-05 10:30 | Progress Note-Post Operative ---
Post-Operative Progess Note Surgeon (s)/Die Filer (s) Surgeon HOA MARTINEZ DO Die Filer: Jose Pre-Operative Diagnosis Biliary Dyskinesia Post-Operative Diagnosis Same B/L Indirect Inguinal hernia with omentum stuck in left Procedure & Operative Findings Date of Procedure 10/05/17 Procedure Performed/Findings Lap maurice with IOC Anesthesia Type GET Estimated Blood Loss Estimated blood loss (mL): scant Specimens/Packing Specimens Removed GB and contents HOA MARTINEZ DO Oct 05, 2017 10:30
[2017-10-05] MEDS ORDERED: ACHD5005 PO (10:31)
--- NOTE | 2017-10-05 10:33 | Discharge Inst-Surgical ---
Discharge Inst-Surgical Depart Medication/Instructions New, Converted or Re-Newed RX: RX Given to Pt/Family Patient Instructions Follow up Appt: Make appointment for 1 weeks. Instructions: No lifting greater than 10 pounds. No strenuous activity. May shower in 24 hours, no tub bath or soaking. Use incentive spirometer at home as directed. No Smoking Skin/Wound Care: May remove bandages in am. You need to leave the Dermabond on over incision it will fall off on its own. Symptoms to Report: Appetite Changes, Extremity Discoloration, Numbness/Tingling, Swelling Increased , Bleeding Excessive, Eyesight Changes, Pain Increased, Urine Color Change, Constipation(Persistent), Fever over 101 degree F, Pain/Pressure in chest, Urinating Difficulty, Cough Up/Vomit Blood, Heart Beat Irreg/Pounding, Pain/ Pressure in jaw, Cramps in feet or legs, Lightheadedness, Pain/Pressure in shoulder, Diarrhea(Persistent), Memory Changes Suddenly, Questions/Concerns, Weight gain consecutive days, Dizziness/Fainting, Nausea/Vomiting, Shortness of Breath, Weight gain over 2 pounds. If eyes or skin turn yellow notify physician. If questions or concerns contact your physician Or seek help at emergency department. Activity Activity as Tolerated: Yes Activity Instructions: Avoid Pulling & Pushing, Avoid Stress to Incision Driving Instructions: No Driving/Refer to Diet Discharge Diet: Avoid Fatty Foods, Low Fat/Low Cholesterol Diet After 24 Hours: Clear Liquid if Nauseous If Any Problems/Questions/Issu: Contact Your Physician, Go to Emergency Room Skin/Wound Care Infection Signs and Symptoms: Increased Redness, Foul Odor of Wound, Increased Drainage, Skin Itchy or Has a Rash, Increased Swelling, Temperature Above 101 F Wound Care Comment: Heating pad to shoulder and neck tonight for pain. Bathing Instructions: Shower Stitches/Denise/Dermabond Dis: Dermabond Ice Pack: Ice On and Off Site (as needed for pain) HOA MARTINEZ DO Oct 05, 2017 10:33
[2017-10-05] MEDS ORDERED: GLYCOPYRROLATE 0.2 MG/ML (ROBINUL) 2 ML VIAL ONE (10:40)
[2017-10-05] MEDS ORDERED: NEOSTIGMINE 1 MG/ML 5 ML SYRINGE ONE (10:40)
--- NOTE | 2017-10-05 10:59 | Diagnostic Imaging Report ---
INDICATION: Undergoing cholecystectomy for abdominal pain and biliary dyskinesia. FINDINGS: Multiple intraoperative cholangiogram images are submitted. There is cannulation of the extra hepatic biliary tree. Images demonstrate contrast opacification of the biliary system. Biliary tree is not significantly dilated. Segmental filling defect over the proximal to mid common bile duct appears be artifactual. There was no persistent filling defect to indicate a retained stone. Flow was present into the duodenum. Fluoroscopy time: 9 seconds IMPRESSION: Negative laparoscopic cholangiogram. Dictated by: Dictated on workstation # [id number]
[2017-10-05] MEDS ORDERED: PROMETHAZINE INJ 25 MG/ML (PHENERGAN) AMP IVP PRN (11:00)
[2017-10-05] MEDS ORDERED: HYDROmorphone 1 MG/ML (DILAUDID) 1 ML SYRINGE IV PRN (11:00)
[2017-10-05] MEDS ORDERED: morphine INJ 10 MG/ML 1ML (SYR OR VIAL) IVP PRN (11:00)
[2017-10-05] MEDS ORDERED: ONDANSETRON 4 MG/2 ML (SDV) Z0FRAN IVP PRN (11:00)
[2017-10-05 11:45] VITALS: BP 118/73
[2017-10-05] MEDS ORDERED: HYDROcodone/APAP 5 MG/325 MG (LORTAB) TAB ONE (12:12)
[2017-10-05] MEDS ORDERED: HYDROcodone/APAP 5 MG/325 MG (LORTAB) TAB PO PRN (12:15)
[2017-10-05 12:16] VITALS: BP 121/77
[2017-10-05 12:45] VITALS: BP 121/77
[2017-10-05 13:20] VITALS: BP 121/77
--- NOTE | 2017-10-05 13:49 | OPERATIVE REPORT ---
DATE OF SERVICE: 10/05/2017 PREOPERATIVE DIAGNOSIS: Biliary dyskinesia. POSTOPERATIVE DIAGNOSES: Biliary dyskinesia, bilateral inguinal hernia with omentum stuck in the left inguinal hernia. They were indirect. PROCEDURE: Laparoscopic cholecystectomy with intraoperative cholangiogram. SURGEON: Haja Cifuentes DO CHAIN SALES REPRESENTATIVE: Austin Garcia DO ANESTHESIA: General endotracheal tube. SPECIMEN: Gallbladder and contents. BLOOD LOSS: Scant. FLUIDS: Per anesthesia. POSTOPERATIVE CONDITION: Stable. INDICATION FOR PROCEDURE: The patient is a 42-year-old male, who has been having right upper quadrant pain as well as some heartburn and mid epigastric pain, had a HIDA scan, which showed a 2% ejection fraction and needed his gallbladder removed. FINDINGS: The patient actually had almost a band looking like across the base of the gallbladder. A picture was taken of this, but no adhesions to the gallbladder and common bile duct was open. PROCEDURE NOTE: After informed consent was obtained, the patient was brought to the operating room, placed in supine position, sterilely prepped and draped in normal fashion. Local lidocaine was used to infiltrate the skin above the umbilicus. Made incision with #11 blade, carried down through skin and subcutaneous tissue, then deepened down to subcutaneous tissue with Bovie electrocautery down to the fascia. Fascia incised with Bovie electrocautery. Bluntly entered the abdomen, swept the finger around, placed 0 Vicryl [id number] suture, then placed 11 mm trocar port under direct visualization. Created pneumoperitoneum. Placed 3 more ports in normal fashion using local lidocaine, 11 blade for stab incision and the VersaStep system, all done under direct visualization, one subxiphoid and two in the right upper quadrant. The patient then placed in reverse Trendelenburg, rotated left, able to visualize the gallbladder, grasped at the fundus, down at the base of the gallbladder there was almost like an indentation like a band that had been holding, it was kind of an oddly shaped gallbladder, took a picture of this. Able to grasp down in the Lawanda's pouch, pulled in inferolateral direction, started dissecting out the cystic duct and cystic artery. Cystic artery was on top. I was able to get around this, clipped once proximally and once distally and cut with Metzenbaum scissors. Then, started dissecting out cystic duct, able to get around the cystic duct, placed one clip distally. Cut intermediate through Metzenbaum scissors. Placed a cholangiogram catheter and shot a cholangiogram. Good spillage of dye down the common bile duct and the small intestine as well as up in the common hepatic and right and left hepatics. Removed the cholangiogram catheter, placed 2 clips proximally on the cystic duct and cut the cystic duct with Metzenbaum scissors. Then started removing the gallbladder from bed of liver with L-hook cautery. Once it was completely removed, switched to 5 mm camera, placed a bag in the abdomen, placed the gallbladder in the bag and then removed this through the supraumbilical incision. Copiously irrigated with normal saline. Hemostasis obtained in the bed of liver with L-hook cautery. Suctioned out all the fluid as well as flushed a little bit, there had been a little bit of bile spillage, by making a very tiny hole, the gallbladder was taken off the bed of liver. Once this removed, then elected to place the patient supine. Suctioned out all fluid, looked in the pelvis and found bilateral indirect inguinal hernias. Pictures taken. On the left, there was some omentum stuck in the left one, but not appear to be any intestine or any obstruction. At this point, then removed all ports under direct visualization, allowed pneumoperitoneum to escape. Closed the supraumbilical incision, closed the fascia with 0 Vicryl suture previously placed. Copiously irrigated all incisions with normal saline, closing the 3 small 5 mm incisions with single interrupted 4-0 undyed Monocryl subcuticular stitch. Closed the supraumbilical incision with 3 interrupted 4-0 undyed Monocryl subcuticular stitches. Area was cleaned and dried. Dermabond placed as well as a dressing. The patient then transferred to recovery room in stable condition. Sponge, instrument and needle count correct at the end of the case. Dr. Garcia assisted by making incisions, holding the gallbladder, helping to identify anatomy and closing the incisions. Job ID: [id number] DocumentID: [id number] Dictated Date: 10/05/2017 10:46:30 Horticulturalist Date: 10/05/2017 13:47:57 Dictated By: DO RABIA HASTINGS
--- NOTE | 2017-10-05 15:14 | Anesthesia-General Post-Op ---
General Patient Condition Mental Status/LOC: Same as Preop Cardiovascular: Satisfactory Nausea/Vomiting: Absent Respiratory: Satisfactory Pain: Controlled Complications: Absent Post Op Complications Complications None Follow Up Care/Instructions Patient Instructions None needed. Anesthesia/Patient Condition Patient Condition Patient was seen after the procedure and was doing well, no complaints, stable vital signs, no apparent adverse anesthesia problems. FERMÍN SOMMER DO Oct 05, 2017 15:14
== END 2017-10-05 13:20 | disposition home or self-care (01) ==
LOC: SDC 08:16
PROVIDERS: ATTEND Surgery
DX: K81.1 Chronic cholecystitis (principal); K40.20 Bilateral inguinal hernia, without obstruction or gangrene, not specified as recurrent
CPT/HCPCS: 87081; 94664

== ENCOUNTER 2018-06-15 16:31 | Emergency (ER) | payer OTHER ==
[~2018-06-15] VITALS: Ht 175.3 cm; Wt 79.4 kg
[~2018-06-15 16:31] MED LIST changes: +ACHD5005 PO
--- OUTSIDE RECORDS SUMMARY | 2018-06-15 16:37 | XMS REPORT | Encounter Summary ---
Author Author [facility] Organization [facility] Address Unknown Phone Unavailable Care Team Providers Care Musical Engineer Name Role Phone Eleuterio Romero MD Unavailable Daksha Snyder DO PCP Encounter Details Care Team Description Date Type Department Paula Yee, ELINA-HUSSAIN [address] [facility] [address] [place], [place] [id number] 05/23/2018 Prep for Case [facility] [address] [place] [address] Social History Date Tobacco Use Types Packs/Day Years Used Never Smoker Smokeless Tobacco: Never Used Alcohol Use Drinks/Week oz/Week Comments Yes 12 Cans of 144.0 beer Sex Assigned at Date Recorded Not on file Industry Job Start Date Occupation Not on file Not on file Not on file Travel End Travel History Travel Start No recent travel history available. documented as of this encounter Plan of Treatment Not on filedocumented as of this encounter Visit Diagnoses Not on filedocumented in this encounter
--- OUTSIDE RECORDS SUMMARY | 2018-06-15 16:37 | XMS REPORT | Encounter Summary ---
Author Author [facility] Organization [facility] Address Unknown Phone Unavailable Care Team Providers Care Acid Cutter Name Role Phone Eleuterio Romero MD Unavailable Daksha Snyder DO PCP Encounter Details Care Team Description Date Type Department Virgilio Perez MD [address] [facility] [address] [place] [address] Esophagitis with gastritis (Primary Dx); Dyspepsia; Bloating 05/23/2018 Prep for Case [facility] [address] [place] [address] Social History Date Tobacco Use [...] filedocumented as of this encounter Visit Diagnoses Diagnosis Esophagitis with gastritis - Primary Dyspepsia Dyspepsia and other specified disorders of function of stomach Bloating Flatulence, eructation, and gas pain documented in this encounter
--- OUTSIDE RECORDS SUMMARY | 2018-06-15 16:37 | XMS REPORT | Encounter Summary ---
Author Author [facility] Organization [facility] Address Unknown Phone Unavailable Care Team Providers Care Surveying Teacher Name Role Phone Eleuterio Romero MD Unavailable Daksha Snyder DO PCP Reason for Referral * Consult, Test & Treat (Routine) Referred By Contact Referred To Contact Status Reason Specialty Diagnoses / Procedures Virgilio Perez MD [address] [facility] [address] [place] [address] Virgilio Perez MD [address] [facility] [address] [place] [address] Closed Specialty Services Gastroenterology Diagnoses Required Bloating Dyspepsia Esophagitis * Radiology Services (Routine) Referred By Contact Referred To Contact Status Reason Specialty Diagnoses / Procedures Virgilio Perez MD [address] [facility] [address] [place] [address] [facility] [address] [address] No Auth Needed Radiology Diagnoses Bloating Dyspepsia Esophagitis P rocedures NM GASTRIC EMPTYING TIME * Consult, Test & Treat (Routine) Referred By Contact Referred To Contact Status Reason Specialty Diagnoses / Procedures Virgilio Perez MD [address] [facility] [address] [place] [address] [facility] [address] [facility] Level [address] [place] [address] Closed Specialty Services Gastroenterology Diagnoses Required Bloating Dyspepsia Esophagitis Reason for Visit * Reason Comments GI Problem Dyspepsia Encounter Details Care Team Description Date Type Department Virgilio Perez MD [address] [facility] [address] [place] [address] Bloating; Dyspepsia; Esophagitis 05/23/2018 Office Visit [facility] [address] [address] Social History Date Tobacco Use Types Packs/Day [...] history available. documented as of this encounter Last Filed Vital Signs Time Taken Vital Sign Reading 05/23/2018 8:09 AM STICKER MACHINE OPERATOR Blood Pressure 155/89 05/23/2018 8:09 AM STICKER MACHINE OPERATOR Pulse 75 05/23/2018 8:09 AM STICKER MACHINE OPERATOR Temperature 36.9 C (98.4 F) - Respiratory Rate - - Oxygen Saturation - - Inhaled Oxygen - Concentration 05/23/2018 8:09 AM STICKER MACHINE OPERATOR Weight 83 kg (183 lb) 05/23/2018 8:09 AM STICKER MACHINE OPERATOR Height 175.3 cm (5' 9") 05/23/2018 8:09 AM STICKER MACHINE OPERATOR Body Mass Index 27.02 documented in this encounter Patient Instructions * Patient Instructions* Bhavna Alberto RN - 05/23/2018 8:00 AM STICKER MACHINE OPERATOR * We have placed a referral to the ammonia still operator for bloating * We have ordered a gastric emptying test. You will be called by the [facility] * We have ordered an EGD and you may schedule this at check out today. You have been provided written prep instructions. Please go to [email or web address] to complete your online health history as soon as possible, you have been provided written instructions for this as well. If you need to reschedule this procedure please call [phone]. Please call Dr. Perez's nurse at [phone] if you have any questions or concerns. General Instructions: To have a medication refilled: Please use the [facility] Refill request or contact your pharmacy directly to request medication refills. Please allow 72 hours. [facility] is on the 1st floor. It is open from 7 am-6pm Tuesday-Tuesday and 6:30am-7pm on Mondays, and 7 am - Noon on Saturdays [facility] Lab is located on the 2nd floor and is open 8 am-5 pm Tuesday-Tuesday [facility] lab is located next to the check out desk and is open from 8 AM to 4:45 PM Tuesday through Tuesday. Radiology is on the 2nd floor of the Medical Office Building and the 2nd Floor of [facility]. Radiology Scheduling can be reached at To Schedule office visits: Call [phone]. For procedure scheduling questions at the [facility] or [facility] please call ; for a procedure at [facility] please call . To receive appointment reminders on your cell phone: Make sure we have your cell phone number, and Text [facility] to [phone]. Support for many chronic illnesses is available through [facility]: [email or web address] or [phone]. For urgent questions on nights, weekends or holidays, call the Radiator Specialist at [phone], and ask for the doctor front line leader for Gastroenterology.Call [phone] for any emergencies. KER MACHINE OPERATOR documented in this encounter Progress Notes * Virgilio Perez MD - 05/23/2018 8:00 AM STICKER MACHINE OPERATOR Date of Service: 05/23/2018 Subjective: Yogesh Meier is a 43 y.o. male. History of Present IllnessFollow-up visit after EGD/biopsy. History of heartburn, dyspepsia, functional abdominal pain. EGD showed LA grade B esophagitis, patient was instructed to take Nexium 20 mg p.o. twice daily since February 2018. Prior to that he has been on Dexilant for several months, with no significant improvement, has to stop. Still complaining of occasional abdominal pain, cramps, increased belching, gas/ bloating. Patient is adamant to PPI, follow antireflux diet. We discussed last time the patient about aerophagia, and diaphragmatic breathing , overtly he did not follow instruction. Past Medical History: Diagnosis Date GERD (gastroesophageal reflux disease) Heel bone fracture Past Surgical History: Procedure Laterality Date HX CHOLECYSTECTOMY 10/05/2017 HM COLONOSCOPY HX WRIST FRACTURE TX Family History Problem Relation Age of Onset Hypertension Mother Polymyalgia rheumatica Mother None Reported Father Social History Socioeconomic History Marital status: Spouse name: Not on file Number of children: Not on file Years of education: Not on file Highest education level: Not on file Occupational History Not on file Tobacco Use Smoking status: Never Smoker Smokeless tobacco: Never Used Substance and Sexual Activity Alcohol use: Yes Alcohol/week: 144.0 oz Types: 12 Cans of beer per week Drug use: No Sexual activity: Not on file Other Topics Concern Not on file Social History Narrative Not on file Review of Systems Constitutional: Negative. HENT: Negative. Eyes: Negative. Respiratory: Negative. Cardiovascular: Negative. Gastrointestinal: Negative. Endocrine: Negative. Genitourinary: Negative. Musculoskeletal: Negative. Skin: Negative. Allergic/Immunologic: Negative. Neurological: Negative. Hematological: Negative. Psychiatric/Behavioral: Negative. All other systems reviewed and are negative. Objective: ALPRAZolam (XANAX) 0.25 mg tablet Take 0.25 mg by mouth at bedtime as needed for Anxiety. amitriptyline (ELAVIL) 10 mg tablet Take 10 mg by mouth daily. Vitals: 05/23/18 0809 BP: 155/89 Pulse: 75 Temp: 36.9 C (98.4 F) Weight: 83 kg (183 lb) Height: 175.3 cm (69") Body mass index is 27.02 kg/m. Physical Exam Constitutional: He is oriented to person, place, and time. He appears well- developed and well-nourished. Neurological: He is alert and oriented to person, place, and time. Psychiatric: He has a normal mood and affect. His behavior is normal. Assessment and Plan: 43-year-old male with history of multiple GI issues including abdominal cramps, belching, gas/bloating, heartburn and gastroesophageal reflux disease. GERD: LA grade B, currently on Nexium. EGD showed >50 Eosinophil/ HPF from the lower esophagus. This is mostly related to gastroesophageal reflux disease I discussed in detail about differential diagnosis which could be eosinophilic esophagitis. Of note patient denies any food allergy, seasonal allergy, childhood asthma. This make diagnosis of eosinophilic esophagitis less likely. We will repeat EGD with biopsy from upper and lower esophagus, after 3 months treatment with PPI. EGD will be scheduled in midlate June. Given history of significant belching, gas/bloating, delayed gastric emptying/ mild gastroparesis is in differential diagnosis. Of note patient denies history of diabetes, or abdominal surgery. 4-hour gastric emptying test, to rule out delayed gastric emptying been ordered. Refer to dietitian to discuss about diet to increase gas/bloating, and dietary modification. The patient raised the question of gluten sensitivity, celiac disease. Biopsy from duodenal was negative for celiac disease. And he tried a gluten-free diet for several months with no significant improvement. This make non-celiac gluten sensitivity less likely. Continue PPI as previously prescribed, and at her to antireflux diet/lifestyle modification. It has been explained to the patient that PPIs are associated with a 1. 50% Increase in risk of CKD 2. 3/4 increase in risk of Clostridium difficile infection 3. 1/3 Increase in risk of pneumonia 4. 1/3 increase in risk of all fractures Large component of his symptoms is related to anxiety and stress, Xanax helps significantly. Patient will continue Xanax 0.25 mg p.o. nightly, and will take second dose in a.m. if needed. Follow-up in GI clinic in 3 months after all test done. Probably discussed in detail with patient, he verbalized understanding and agreed. Total face to face time spent with patient: 30 minutes with >50% of that time spent counseling the patient on medications, prior study results related to symptoms, differential diagnosis, and options regarding the plan of care. Thank you very much for the consult, and for allowing me to participate in this patient's care. This note was in part completed with [employer], a voice recognition software. Some grammatical errors may have occurred. If you have concerns,please contact my office for clarification. KER MACHINE OPERATOR documented in this encounter Plan of Treatment Order Schedule Name Priority Associated Diagnoses Expected: 05/23/2018 (Approximate), Expires: 05/23/2019 NM GASTRIC EMPTYING TIME Routine Bloating Dyspepsia Esophagitis Order Schedule Name Priority Associated Diagnoses Ordered: 05/23/2018 AMB REFERRAL TO NUTRITION Routine Bloating Dyspepsia Esophagitis Ordered: 05/23/2018 AMB REFERRAL TO GI LAB FOR PROCEDURE Routine Bloating Dyspepsia Esophagitis documented as of this encounter Visit Diagnoses Diagnosis Bloating Flatulence, eructation, and gas pain Dyspepsia Dyspepsia and other specified disorders of function of stomach Esophagitis Esophagitis, unspecified documented in this encounter
--- OUTSIDE RECORDS SUMMARY | 2018-06-15 16:37 | XMS REPORT | Encounter Summary ---
Author Author [facility] Organization [facility] Address Unknown Phone Unavailable Care Team Providers Care Transcript Evaluator Name Role Phone Eleuterio Romero MD Unavailable Daksha Snyder DO PCP Reason for Visit * Reason Comments Error Encounter Details Care Team Description Date Type Department Virgilio Perez MD [address] [facility] [address] [place] [address] Error 03/22/2018 Telephone [facility] [address] [place] [address] Social History Date Tobacco Use [...]
--- OUTSIDE RECORDS SUMMARY | 2018-06-15 16:37 | XMS REPORT | Clinical Summary ---
Author Author [facility] Organization [facility] Address Unknown Phone Unavailable Care Team Providers Care Grease Remover Name Role Phone Eleuterio Romero MD Unavailable Daksha Snyder DO PCP Source Comments Some departments are not documenting in the electronic medical record. If you do not see the information that you expected, contact Release of Information in the Health Information Management department at [phone] for further assistance in locating additional records.[facility] Allergies No Known Allergies Medications End Date Status Medication Sig Dispensed Refills Start Date Active amitriptyline (ELAVIL) 10 Take 10 mg by 0 11/24/201 mg tablet mouth daily. 8 Active ALPRAZolam (XANAX) 0.25 Take 0.25 mg 0 mg tablet by mouth at bedtime as needed for Anxiety. Active Problems Problem Noted Date Gastroesophageal reflux disease without esophagitis 12/27/2017 Belching 12/27/2017 Fracture calcaneus-closed 10/14/2007 Encounters Care Team Description Date Type Specialty Virgilio Perez MD Bloating; Dyspepsia; Esophagitis 05/23/2018 Office Visit Gastroenterology Virgilio Perez MD Esophagitis with gastritis (Primary Dx); Dyspepsia; Bloating 05/23/2018 Prep for Case Gastroenterology Paula Yee APRN-NP 05/23/2018 Prep for Case Gastroenterology Virgilio Perez MD Error 03/22/2018 Telephone Gastroenterology from Last 3 Months Family History Medical History Relation Name Comments None Reported Father Hypertension Mother Polymyalgia rheumatica Mother Relation Name Status Comments Father Alive Mother Alive Social History Date Tobacco Use Types Packs/Day Years Used Never Smoker Smokeless Tobacco: Never Used Alcohol Use Drinks/Week oz/Week Comments Yes 12 Cans of 144.0 beer Sex Assigned at Date Recorded Not on file Industry Job Start Date Occupation Not on file Not on file Not on file Travel End Travel History Travel Start No recent travel history available. Last Filed Vital Signs Time Taken Vital Sign Reading 05/23/2018 8:09 AM CONTACT CENTER MANAGER Blood Pressure 155/89 05/23/2018 8:09 AM CONTACT CENTER MANAGER Pulse 75 05/23/2018 8:09 AM CONTACT CENTER MANAGER Temperature 36.9 C (98.4 F) 02/14/2018 8:22 AM CONTACT CENTER MANAGER Respiratory Rate 16 12/27/2017 8:49 AM CDT Oxygen Saturation 100% - Inhaled Oxygen - Concentration 05/23/2018 8:09 AM CONTACT CENTER MANAGER Weight 83 kg (183 lb) 05/23/2018 8:09 AM CONTACT CENTER MANAGER Height 175.3 cm (5' 9") 05/23/2018 8:09 AM CONTACT CENTER MANAGER Body Mass Index 27.02 Plan of Treatment Health Maintenance Due Date Last Done Comments PHYSICAL (COMPREHENSIVE) 1981 EXAM HIV SCREENING 1989 DTAP/TDAP VACCINES (1 - 01/02/1992 Tdap) INFLUENZA VACCINE 10/26/2017 Results Not on filefrom Last 3 Months Insurance Type Payer Benefit Subscriber ID Effective Phone Address Plan / Dates Group HMO CIGNA CIGNA NON xxxxxxxxxxx 2017-P PPO/EPO resent Advance Directives Patient has advance care planning documents on file. For more information, please contact: [facility] [address] [place] [address]
--- OUTSIDE RECORDS SUMMARY | 2018-06-15 16:38 | XMS REPORT | Continuity of Care Document ---
Author Author [facility] Organization [facility] Address Unknown Phone Unavailable Allergies Active Description Code Type Severity Reaction Onset Reported/Identified Relationship to Patient Clinical Status Yes No Known Drug Allergies [id number] Drug Allergy Unknown N/A 09/30/2017 Medications There [...] 11/25/2014 RENTERIA DO, CINDA Ot 285.9 11/25/2014 RENTERAI DO, CINDA Ot 696.1 11/25/2014 RENTERIA DO, [...] Ot 782.1 NONSPECIF SKIN ERUPT NEC 08/01/2017 RENTERIA DO, CINDA Ot R10.9 UNSPECIFIED ABDOMINAL PAIN 08/02/2017 RENTERIA DO, CINDA Ot R10.9 UNSPECIFIED ABDOMINAL PAIN 08/02/2017 JUAN PRADO, HOA B Ot K29.70 GASTRITIS, UNSPECIFIED, WITHOUT BLEEDING 08/04/2017 JUAN DO, HOA B Ot K29.70 GASTRITIS, UNSPECIFIED, WITHOUT BLEEDING 08/09/2017 RENTERIA DO, CINDA Ot R10.9 UNSPECIFIED ABDOMINAL PAIN 09/12/2017 RENTERIA DO, CINDA Ot R10.9 UNSPECIFIED ABDOMINAL PAIN 09/23/2017 JUAN PRADO HOA B Ot Z01.818 ENCOUNTER FOR OTHER PREPROCEDURAL EXAMIN 09/25/2017 JAUN PRADO HOA B Ot K82.8 OTHER SPECIFIED DISEASES OF GALLBLADDER 09/26/2017 MYRA PRADO, CINDA Ot R10.9 UNSPECIFIED ABDOMINAL PAIN 09/26/2017 JUAN PRADO OHA B Ot K82.8 OTHER SPECIFIED DISEASES OF GALLBLADDER 09/26/2017 JUAN PRADO HOA B Ot K21.9 GASTRO-ESOPHAGEAL REFLUX DISEASE WITHOUT 09/26/2017 JUAN PRADO, HOA B Ot K52.9 NONINFECTIVE GASTROENTERITIS AND COLITIS 09/26/2017 JUAN PRADO HOA B Ot K64.8 OTHER HEMORRHOIDS 09/26/2017 JUAN PRADO HOA B Ot R19.5 OTHER FECAL ABNORMALITIES 09/26/2017 JUAN PRADO HOA B Ot Z80.0 FAMILY HISTORY OF MALIGNANT NEOPLASM OF 09/26/2017 JUAN PRADO HOA B Ot Z01.818 ENCOUNTER FOR OTHER PREPROCEDURAL EXAMIN 09/30/2017 JUAN PRADO HOA B Ot K82.8 OTHER SPECIFIED DISEASES OF GALLBLADDER 09/30/2017 JUAN PRADO HOA B Ot Z01.818 ENCOUNTER FOR OTHER PREPROCEDURAL EXAMIN 10/03/2017 JUAN PRADO HOA B Ot K82.8 OTHER SPECIFIED DISEASES OF GALLBLADDER 10/03/2017 JUAN PRADO HOA B Ot Z01.818 ENCOUNTER FOR OTHER PREPROCEDURAL EXAMIN 10/04/2017 JUAN PRADO HOA B Ot K82.8 OTHER SPECIFIED DISEASES OF GALLBLADDER 10/05/2017 MYRA PRADO CINDA Ot R10.9 UNSPECIFIED ABDOMINAL PAIN 10/05/2017 HOA MARTINEZ DO Ot K82.8 OTHER SPECIFIED DISEASES OF GALLBLADDER 10/05/2017 HOA MARTINEZ DO Ot K40.20 BI INGUINAL HERNIA, W/O OBST OR GANGRENE 10/05/2017 HOA MARTINEZ DO B Ot K81.1 CHRONIC CHOLECYSTITIS 10/07/2017 OTILIA MARTINEZ DOIC Hannah Ot K40.20 BI INGUINAL HERNIA, W/O OBST OR GANGRENE 10/07/2017 OTILIA MARTINEZ DOIC Hannah Ot K81.1 CHRONIC CHOLECYSTITIS 10/13/2017 HOA MARTINEZ DO Ot K40.20 BI INGUINAL HERNIA, W/O OBST OR GANGRENE 10/13/2017 OTILIA MARTINEZ DOIC Hannah Ot K81.1 CHRONIC CHOLECYSTITIS Procedures There is no data. Results Test [...] urinalysis with reflex to culture NO NRG Methicillin resistant Staphylococcus aureus (MRSA) screening culture - 08:45 Methicillin resistant Staphylococcus aureus (MRSA) screening culture NEG NRG Encounters ACCT No. Visit Date/Time Discharge Status Pt. Type Provider Facility Loc./Unit Complaint [id number] 10/05/2017 08:16:00 10/05/2017 13:20:00 DIS Outpatient HOA MARTINEZ DO [facility] SDC CHOLELITHIASIS [id number] 09/30/2017 05:24:00 09/30/2017 13:19:00 DIS Outpatient HOA MARTINEZ DO [facility] PREOP CHOLELITHIASIS [id number] 09/26/2017 08:30:00 09/26/2017 11:05:00 DIS Outpatient HOA MARTINEZ DO [facility] ENDO FAMILY HX COLON CA [id number] 09/23/2017 11:00:00 09/23/2017 11:48:00 DIS Outpatient HOA MARTINEZ DO [facility] PREOP COLONOSCOPY [id number] 09/19/2017 11:56:00 09/19/2017 23:59:59 CLS Outpatient HOA MARTINEZ DO [facility] CARD ABD PAIN [id number] 08/02/2017 10:28:00 08/02/2017 12:45:00 DIS Outpatient HOA MARTINEZ DO [facility] ENDO WT LOSS, ABD PAIN [id number] 07/29/2017 07:51:00 07/29/2017 23:59:59 CLS Outpatient MYRA PRADO CINDA [facility] RAD R10.9 ABD PAIN [id number] 09/18/2014 16:37:00 09/18/2014 23:59:59 CLS Outpatient MYRA PRADO CINDA [facility] RAD SACRUM PAIN,BACK PAIN,SI JOINT PAIN,ANEMIA,PSORIAS [id number] 10/05/2007 10:49:00 Document Registration [id number] 09/18/2014 16:40:13 ACT Document Registration
[2018-06-15] MEDS ORDERED: LIDOCAINE 1% INJ 20 ML 20 ML VIAL INJ ONE (18:15)
--- NOTE | 2018-06-15 18:22 | ED Upper Extremity ---
General Chief Complaint: Laceration Stated Complaint: L HAND LAC Nursing Triage Note: PT SENT FROM WITH COMPLAINT OF LEFT HAND LACERTION. PT STATES HE WAS CUT BY AN IMPACT SOCKET. DENIES ANY OTHER INJURY. Nursing Sepsis Screen: No Definite Risk Source: patient Exam Limitations: no limitations History of Present Illness Date Seen by Provider: Jun 15, 2018 Time Seen by Provider: 18:19 Initial Comments To ER per private vehicle with reports of a laceration to the palm of the left hand. Tetanus is not up-to-date. This was minor impact socket at home in his garage. Onset: just prior to arrival Severity: moderate Pain/Injury Location: left hand Modifying Factors: Worse With Movement Allergies and Home Medications Allergies Coded Allergies: No Known Drug Allergies (Unverified , 09/30/17) Home Medications Hydrocodone Bit/Acetaminophen 1 Tab Tab, 1 TAB PO Q6H PRN Prescribed by: HOA MARTINEZ on 10/05/17 1031 Pantoprazole Sodium 40 Mg Tablet.dr, 40 MG PO DAILY, (Reported) Patient Home Medication List Home Medication List Reviewed: Yes Review of Systems Constitutional: see HPI EENTM: see HPI Respiratory: no symptoms reported Cardiovascular: no symptoms reported Genitourinary: no symptoms reported Musculoskeletal: see HPI Skin: see HPI Psychiatric/Neurological: No Symptoms Reported Past Yqiadnx-Aqhbth-Cuhjpc Hx Patient Social History Alcohol Use: Occasionally Uses Number of Drinks Today: AA Alcohol Beverage of Choice: Beer Recreational Drug Use: No Smoking Status: Never a Smoker Recent Foreign Travel: No Contact w/Someone Who Travel: No Recent Infectious Disease Expo: No Recent Hopitalizations: No Immunizations Up To Date Tetanus Booster (TDap): More than 5yrs PED Vaccines UTD: Yes Seasonal Allergies Seasonal Allergies: Yes (MILD) Past Medical History Surgeries: Yes Gallbladder Respiratory: No Currently Using CPAP: No Currently Using BIPAP: No Cardiac: No Neurological: No Reproductive Disorders: No Sexually Transmitted Disease: No HIV/AIDS: No Gastrointestinal: Yes Gastroesophageal Reflux, Gall Bladder Disease Musculoskeletal: No Endocrine: No Loss of Vision: Denies Hearing Impairment: Denies Cancer: No Psychosocial: No Integumentary: Yes Psoriasis Blood Disorders: No Adverse Reaction/Blood Tranf: No (N/A) Family Medical History Malignant neoplasm of digestive organs Physical Exam Vital Signs Vital Signs - First Documented 06/15/18 17:59 Pulse 81 Resp 20 B/P (MAP) 148/88 (108) Pulse Ox 98 O2 Delivery Room Air Capillary Refill : Less Than 3 Seconds Height, Weight, BMI Height: 5'9.00" Weight: 175lbs. 0.0oz. 79.633620ml; 24.1 BMI Method:Stated General Appearance: WD/WN, no apparent distress HEENT: PERRL/EOMI Respiratory: no respiratory distress, no accessory muscle use Gastrointestinal: normal bowel sounds, soft Shoulder: normal inspection, non-tender Elbow/Forearm: normal inspection, non-tender Hand: Left, laceration (for semi-laceration to the palm of left hand oriented in a radial to ulnar fashion. Depth is to the subcutaneous cutaneous tissue. He retained the ability to flex the middle pointer finger and thumb. He has some reduced sensation to the tip of the left pointer finger but also has a small laceration to this area.) Neurologic/Tendon: normal sensation, normal motor functions Neurologic/Psychiatric: alert, normal mood/affect, oriented x 3 Skin: normal color, warm/dry Procedures/Interventions Wound Location: Upper Extremities Wound Length (cm): 4 Wound's Depth, Shape: linear Wound Explored: clean Irrigated w/ Saline (ccs): 500 Anesthesia: 1% Lidocaine Volume Anesthetic (ccs): 3 Suture: Prolene Suture Size: 5-0 Number of Sutures: 6 Layer Closure?: 1 Number Deep Layer Sutures: 0 Progress Anesthesia was achieved by doing a median nerve block using 3 mL of 1% lidocaine without epinephrine. This achieved wonderfully anesthesia. The wound was then scrubbed with chlorhexidine/saline solution and irrigated with 400 mL of saline solution. No foreign bodies were identified. The visualized flexor tendon injury. He maintains flexion ability Progress/Results/Core Measures Results/Orders My Orders Orders - DEAN DAVIS APRN Lidocaine 1% Inj 20 Ml (Xylocaine 1% Inj (06/15/18 18:15) Vital Signs/I&O 06/15/18 17:59 Pulse 81 Resp 20 B/P (MAP) 148/88 (108) Pulse Ox 98 O2 Delivery Room Air Blood Pressure Mean: 108 Departure Impression Primary Impression: Hand laceration Qualified Codes: S61.412A - Laceration without foreign body of left hand, initial encounter Disposition: 01 HOME, SELF-CARE Condition: Stable Departure-Patient Inst. Decision time for Depature: 18:44 Referrals: CINDA RENTERIA DO (PCP/Family) Primary Care Physician Patient Instructions: Laceration Repair With Stitches (DC) Add. Discharge Instructions: 1. Stitches out in about 10 days. Keep an eye on this for any sign of infection such as redness or swelling or pus like drainage. Keep the bandage over this for about the next 5 days. Change it daily. You may shower leading water run over this. Take Anaprox as directed. All discharge instructions reviewed with patient and/or family. Voiced understanding. Scripts Cephalexin (Keflex) 500 Mg Capsule 500 MG PO TID, #21 CAP Prov: DEAN DAVIS GARBAGE TRUCK HELPER 06/15/18 DEAN DAVIS APRN Jun 15, 2018 18:22
[2018-06-15] MEDS ORDERED: CEPH-507 PO (18:45)
[2018-06-15] MEDS ORDERED: TETANUS,DIPTH,PERTUSS P/F (BOOSTRIX) 0.5 ML VIAL IM ONE (19:00)
[2018-06-15 19:09] VITALS: BP 148/88
== END 2018-06-15 19:09 | disposition home or self-care (01) ==
LOC: EDUNIT# 16:31 → ER 16:32
DX: S61.412A Laceration without foreign body of left hand, initial encounter (principal); K21.9 Gastro-esophageal reflux disease without esophagitis; Z87.19 Personal history of other diseases of the digestive system; Z98.890 Other specified postprocedural states; W26.8XXA Contact with other sharp object(s), not elsewhere classified, initial encounter; Y92.009 Unspecified place in unspecified non-institutional (private) residence as the place of occurrence of the external cause
CPT/HCPCS: 12002; 90715